=== PATIENT | male | born 1990 | race American Indian/Alaskan Native ===

== ENCOUNTER 2018-11-05 00:23 | Emergency (ER) | payer BC ==
[2018-11-05 00:32] VITALS: RESP 18; O2SAT 97
[2018-11-05 00:35] VITALS: BMI 29.7
[2018-11-05] MEDS ORDERED: Naproxen 550 mg Tab PO STA (00:43)
--- NOTE | 2018-11-05 00:48 | ED PDOC ---
Arrival/HPI - General Chief Complaint: Upper Extremity Problem/Injury Time Seen by Provider: 11/05/18 00:30 Historian: Patient - History of Present Illness Narrative History of Present Illness (Text): 11/05/18 00:51 27 yo M presents c/o 2 day h/o of atraumatic L elbow pain, worse with movement. 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 Of note, patient is right-hand dominant. Otherwise reports no fever, chills, numbness, shoulder pain, wrist pain, chest pain, neck pain, back pain, any other joint pain or injury. Patient has no other complaints. Past Medical History - Cardiac Hx Cardiac Disorders: No - Pulmonary Hx Asthma: Yes - Neurological Hx Neurological Disorder: No - HEENT Hx HEENT Disorder: No - Renal Hx Renal Disorder: No - Endocrine/Metabolic Hx Endocrine Disorders: No - Hematological/Oncological Hx Blood Disorders: No - Integumentary Hx Dermatological Disorder: No - Musculoskeletal/Rheumatological Hx Musculoskeletal Disorders: Yes Other/Comment: torn tricep muscle 3 years ago per patient - Gastrointestinal Hx Gastrointestinal Disorders: No - Genitourinary/Gynecological Hx Genitourinary Disorders: No - Psychiatric Hx Psychophysiologic Disorder: No Hx Substance Use: No - Anesthesia Hx Anesthesia: No Family/Social History Family/Social History: No Known Family HX Smoking Status: Never Smoked Hx Alcohol Use: No Hx Substance Use: No Allergies/Home Meds Allergies/Adverse Reactions: Allergies No Known Allergies Allergy (Verified 11/05/18 00:35) Home Medications: Home Meds Medication Instructions Recorded Confirmed Albuterol HFA [Ventolin HFA 90 1 puff INH PRN PRN 11/05/18 11/05/18 mcg/actuation (8 g)] Review of Systems - Review of Systems Constitutional: absent: Fatigue, Fevers Musculoskeletal: Arthralgias, Joint Swelling. absent: Back Pain, Neck Pain Skin: absent: Rash, Pruritis, Skin Lesions Physical Exam Vital Signs Temp Pulse Resp BP Pulse Ox 11/05/18 00:32 98.8 F 76 18 146/82 97 Temperature: Afebrile Blood Pressure: Normal Pulse: Regular Respiratory Rate: Normal Appearance: Positive for: Well-Appearing, Non-Toxic, Comfortable Pain Distress: Mild Mental Status: Positive for: Alert and Oriented X 3 - Systems Exam Upper Extremity: Present: NORMAL PULSES, Neurovascularly Intact, Capillary Refill < 2s, Norm 2-Pt Discrimination, Other (L elbow : +tenderness, with mild edema, limited ROM secondary to pain, other joints non-tender). No: Erythema, Temperature Abnormalties, Deformity Lower Extremity: Present: Normal Inspection. No: Edema Neurological: Present: GCS=15, CN II-XII Intact, Speech Normal, Motor Func Grossly Intact, Normal Sensory Function Skin: Present: Warm, Dry, Normal Color. No: Rashes Psychiatric: Present: Alert, Oriented x 3, Normal Insight, Normal Concentration Medical Decision Making ED Course and Treatment: 11/05/18 00:49 Plan : - XR L elbow - Naprosyn PO XR L elbow: no fracture, no dislocation, as read by PA Patient advised that official radiology read of XR is still pending and will call the patient if there is any discrepancy within 24 hours. On reevaluation, patient remains awake alert and oriented 3. XR results d/w the patient, diagnosis of bursitis d/w the patient, advised RICE to the joint, channing wrap applied. Advised to follow up with primary care physician in 1-2 days without fail. Advised to take medication as prescribed. Return to the emergency room at any time for any new or worsening symptoms. Patient states he fully agrees with and understands discharge instructions. States that he agrees with the plan and disposition. Verbalized and repeated discharge instructions and plan. I have given the patient opportunity to ask any additional questions. - RAD Interpretation Radiology Orders: 11/05/18 00:43 ELBOW LEFT 3 VIEWS ROUTINE [RAD] Stat - Medication Orders Current Medication Orders: Naproxen (Anaprox Ds) 550 mg PO ONCE STA Stop: 11/05/18 00:44 - PA / PREMIUM SERVICE REPRESENTATIVE / Resident Statement /DO has reviewed & agrees with the documentation as recorded. Disposition/Present on Arrival - Present on Arrival Any Indicators Present on Arrival: No History of DVT/PE: No History of Uncontrolled Diabetes: No Urinary Catheter: No History of Decub. Ulcer: No History Surgical Site Infection Following: None - Disposition Have Diagnosis and Disposition been Completed?: Yes Diagnosis: Bursitis Disposition: HOME/ ROUTINE Disposition Time: 01:30 Patient Plan: Discharge Condition: STABLE Discharge Instructions (ExitCare): Bursitis (DC) Additional Instructions: Thank you for letting us take care of you today. You were treated for bursitis. The emergency medical care you received today was directed at your acute symptoms. If you were prescribed any medication, please fill it and take as directed. It may take several days for your symptoms to resolve. Return to the Emergency Department if your symptoms worsen, do not improve, or if you have any other problems. Please contact your doctor in 2 days for re-evaluation and follow up / or call one of the physicians/clinics you have been referred to that are listed on the Patient Visit Information form that is included in your discharge packet. Bring any paperwork you were given at discharge with you along with any medications you are taking to your follow up visit. Our treatment cannot replace ongoing medical care by a primary care provider (PCP) outside of the emergency depa rtment. Thank you for allowing the [facility] team to be part of your care today. If you had an X-Ray : A Radiologist will review the ED reading if any change in treatment is needed we will contact you. Prescriptions: Meloxicam [Mobic] 15 mg PO DAILY PRN #30 tab PRN Reason: Pain, Moderate (4-7) Referrals: [facility] [place] [Outside] - Follow up with primary Sumit Desai MD [Staff Provider] - Follow up with primary Forms: [email or web address] ([place]), WORK NOTE
[2018-11-05 02:37] VITALS: BP 140/80; PULSE 78; TEMP 98.7
--- NOTE | 2018-11-05 12:01 | RAD ---
Date of service: 11/05/2018 PROCEDURE: Radiographs of the left elbow. HISTORY: pain COMPARISON: No prior. TECHNIQUE: 3 views obtained. FINDINGS: Note that the examination is limited due to the lack of a adequate lateral view. BONES: Normal. No fracture. JOINTS: Normal. No osteoarthritis. SOFT TISSUES: Normal. JOINT EFFUSION: None. OTHER FINDINGS: None IMPRESSION: Limited study due to the lack of a adequate lateral view No definitive radiographic evidence of acute displaced fracture nor dislocation. If symptoms persist or occult fracture suspected clinically recommend repeat radiographs in 7-10 days as most fractures should become radiographically evident this timeframe.
== END 2018-11-05 01:45 | disposition home or self-care (01) ==
LOC: ED 00:23
DX: M71.9 Bursopathy, unspecified (principal)